=== PATIENT | male | born 1970 | race Caucasian/White ===

== ENCOUNTER 2018-03-24 23:29 | Emergency (ER) | payer SELFPAY ==
[2018-03-24] MEDS ORDERED: SUCCINYLCHOLINE CHLORIDE 200 MG/10 ML VIAL ONE (23:33)
[2018-03-24] MEDS ORDERED: ETOMIDATE 40 MG/20 ML VIAL ONE (23:33)
--- NOTE | 2018-03-25 00:21 | PD ---
HPI Chief Complaint: Cardiac arrest Time Seen by Provider: 23:57 Travel History International Travel<30 days: No Contact w/Intl Traveler<30days: No History of Present Illness HPI Is an approximately [age]-old man, brought in by private vehicle in cardiac arrest. Initially no real history was available. Friend brought him and does not know any medical history except history of prior back problems. After patient was pronounced, I spoke with the woman who brought him in. She states that he has a history of substance abuse. Had relapsed recently but was back in rehab. Known to use crystal meth and heroin. She reports that he had called her and said that he was feeling depressed, wanted to go out to dinner. They went out to dinner and afterwards he went to a gas station. He went to the bathroom when he came out she says he did not look well. He has tried to drive and he reclined his seat. She knows she was not paying attention to her when she looked over he looked pale, unwell, and unresponsive. She was close to the hospital and immediately diverted to the hospital. History Past Medical History Narrative Medical Back problems Substance abuse Social History Narrative Social History Known polysubstance abuse Tobacco Use: No (Unknown) Review of Systems Except as stated in HPI: all other systems reviewed are Neg Physical Exam Narrative GENERAL: Middle-aged adult male, unresponsive clammy pulseless. SKIN: Focused skin assessment warm/dry. HEAD: Atraumatic. Normocephalic. EYES: Pupils fixed and dilated. ENT: No nasal bleeding or discharge. Mucous membranes pink and moist. NECK: Trachea midline. No JVD. CARDIOVASCULAR: Mottled cool and poorly perfused. No pulse. RESPIRATORY: No spontaneous respiratory effort. GASTROINTESTINAL: Abdomen soft, non-tender, nondistended. Hepatic and splenic margins not palpable. MUSCULOSKELETAL: No obvious deformities. No clubbing. No cyanosis. No edema. NEUROLOGICAL: Obtunded. No response to any stimulus. Data Data Orders Orders Etomidate Inj (Amidate Inj) (03/24/18 23:33) Succinylcholine Inj (Quelicin Inj) (03/24/18 23:33) [facility] Medical Decision Making Medical Screen Exam Complete: Yes Emergency Medical Condition: Yes Differential Diagnosis Drug overdose, PE, PA, arrhythmia, AAA, hyperkalemia or renal failure, other Narrative Course Patient presented by private vehicle to the front door and cardiac arrest. Patient was brought immediately to the back. ACLS was initiated. Chest compressions were continued. Presenting rhythm with an agonal wide complex PEA rhythm, there is some concern for V. tach initially but I think this is probably artifact in the first good look at the rhythm he showed this wide agonal bradycardic PEA. Chest compressions were continued, IV was established, medications are given including epinephrine, naloxone, calcium for possible hyperkalemia, bicarb. Once supplies were established, patient was intubated without difficulty. MATUTE type [id number] ultrasound was performed. No cause for PEA arrest was identified. Pupils are fixed and dilated. There is no cardiac motion on ultrasound. Agonal rhythm continued to worsen to nearly asystole. Patient was pronounced at 23:47. Nursing staff's review of patient's phone looking for next of kin information review his text messages that seem to allude to purchasing drugs this evening. Procedures Procedure Narrative [id number] ultrasound was performed at the bedside: No cardiac motion. No pericardial tamponade. No pneumothorax. No AAA. No fluid in the abdomen. INTUBATION: The patient was put in optimal position for the procedure. The patient was intubated with a 8.0 cuffed endotracheal tube. Tube placement was confirmed by visualization of the tube and balloon passing through the cords, capnometry. Breath sounds were equal and well aerated bilaterally postintubation. No breath sounds over stomach. Patient tolerated procedure well. Diagnosis Primary Impression: Cardiac arrest Disposition: 20 Jj Rizo MD March 25, 2018 00:21
== END 2018-03-25 02:00 | disposition expired ==
LOC: EDBD 23:29 → NEPE 23:29
DX: I46.9 Cardiac arrest, cause unspecified (principal); R00.1 Bradycardia, unspecified; F15.11 Other stimulant abuse, in remission; F11.11 Opioid abuse, in remission
CPT/HCPCS: 31500; 92950; 99285; J0330